=== PATIENT | female | born 1960 | race Caucasian/White ===

== ENCOUNTER 2017-06-01 06:14 | Day surgery (SDC) | payer BC, OTHER ==
[2017-06-01] MEDS ORDERED: KETOROLAC 30 MG/ML VIAL IVP ONE (06:15)
[2017-06-01] MEDS ORDERED: PROPOFOL 10 MG/ML VIAL IV ONE (06:15)
[2017-06-01] MEDS ORDERED: SEVOFLURANE 250 ML INH ONE (06:15)
[2017-06-01] MEDS ORDERED: MECLIZINE 25 MG TABLET PO ONE (06:15)
[2017-06-01] MEDS ORDERED: ONDANSETRON HCL IV 4 MG/2 ML VIAL IVP ONE (06:15)
[2017-06-01] MEDS ORDERED: FAMOTIDINE 20MG TABLET PO ONE (06:15)
[2017-06-01] MEDS ORDERED: LIDOCAINE 2% MDV (20MG/ML) 20ML VIAL IV ONE (06:15)
[2017-06-01] MEDS ORDERED: ACETAMINOPHEN W/ CODEINE 300MG/30MG TABLET PO ONE (06:15)
[2017-06-01] MEDS ORDERED: ACETAMINOPHEN 1,000 MG/100 ML BTL IV ONE (06:15)
[2017-06-01] MEDS ORDERED: METOCLOPRAMIDE 10 MG TABLET PO ONE (06:15)
--- NOTE | 2017-06-01 12:30 | Operative Note ---
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 OPERATIVE PROCEDURE: Alvaro Quervain's fasciotomy of the left wrist. DESCRIPTION: This 57-year-old female was taken to the operating room and placed in the supine position on the operating room table. A general anesthetic was administered and the left upper extremity was elevated, prepped with Hibiclens and draped in the usual sterile fashion. It was exsanguinated and the tourniquet inflated to 250 mmHg. A transverse incision was made 1 cm proximal to the tip of the radial styloid on the radial aspect of the wrist. Dissection was carried down to the skin and subcutaneous tissue. Hemostasis obtained with the electrocautery. The superficial vessels were protected and retracted radially and ulnarly to expose the proximal edge of the first dorsal compartment, and this was incised from proximal to distal with the tendons under direct vision. An extensive amount of rust-colored fluid emanated from the tendon sheath, and this was suctioned. The patient's tendons, however, appeared to be normal. The extensor brevis was seen to be septated in a separate compartment, and this was divided to free up all tendons. The abductor longus then was easily identified and the tendons themselves appeared to be otherwise normal. The wound was irrigated and we checked the path of all tendons and found them to be unobstructed, and the wound was then closed. The subcutaneous tissue closed with 4-0 Vicryl. The skin was closed with a subcuticular 4-0 nylon suture. Sterile dressings were applied, and the patient taken to the recovery room in satisfactory condition. GROSS PATHOLOGY: This patient demonstrated extensive amount of synovial fluid in the tendon sheath of the first dorsal compartment. The extensor brevis was seen to be septated in a separate compartment within the first dorsal compartment, and this was divided so that all tendons were free and unobstructed. CC: Dejah Nicole DO [facility]
== END 2017-06-01 08:35 | disposition home or self-care (01) ==
LOC: SUR 06:14
PROVIDERS: ATTEND Orthopaedic Surgery
DX: M65.4 Radial styloid tenosynovitis [de Quervain] (principal); E03.9 Hypothyroidism, unspecified
CPT/HCPCS: 25000; 01810; J1885; J2405

== ENCOUNTER 2017-12-07 09:24 | Day surgery (SDC) | payer BC ==
[~2017-12-07 09:24] MED LIST: ACETAMINOPHEN 1,000 MG/100 ML BTL IV ONE; SCOPOLAMINE 1 PATCH TDSY TD ONE
[2017-12-07] MEDS ORDERED: EPHEDRINE SULFATE 50 MG/ML ML IV ONE (09:25)
[2017-12-07] MEDS ORDERED: PROPOFOL 10 MG/ML VIAL IV ONE (09:25)
[2017-12-07] MEDS ORDERED: SEVOFLURANE 250 ML INH ONE (09:25)
[2017-12-07] MEDS ORDERED: BUPIVACAINE 0.25% W/EPI MPF 30ML VIAL IVP ONE (09:25)
[2017-12-07] MEDS ORDERED: LIDOCAINE 1% MDV (10MG/ML) 20ML VIAL SQ ONE (09:25)
[2017-12-07] MEDS ORDERED: ONDANSETRON HCL IV 4 MG/2 ML VIAL IVP ONE (09:25)
[2017-12-07] MEDS ORDERED: DEXAMETHASONE 4 MG/ML 1ML VIAL IVP ONE (09:25)
[2017-12-07] MEDS ORDERED: KETOROLAC 30 MG/ML VIAL IVP ONE (09:25)
[2017-12-07] MEDS ORDERED: *PACU ONLY* KETAMINE HCL 10 MG/ML (20ML) VIAL IV ONE (09:25)
--- NOTE | 2017-12-08 10:30 | Operative Note ---
DATE OF SURGERY: 12/07/2017 Surgeon: Morteza Dempsey DO PREOPERATIVE DIAGNOSIS: Acromioclavicular arthrosis of the right shoulder. POSTOPERATIVE DIAGNOSIS: Acromioclavicular arthrosis of the right shoulder. OPERATION: Anant procedure of the right shoulder (resection right distal clavicle). DESCRIPTION OF PROCEDURE: This 57-year-old female was taken to the operating room and placed in the supine position on the operating room table. General anesthetic was administered. She was then placed in the beach chair position with all bony prominences well padded and the head well secured. The right shoulder was prepped with Hibiclens and draped in the usual sterile fashion. An incision was made in Dusty's lines from anterior to posterior overlying the acromioclavicular joint. Dissection was carried down through the skin and subcutaneous tissue. Hemostasis obtained with the electrocautery. The joint capsule was identified and an incision was made on the superior surface of the capsule and then it was extended on the superior surface in the midline to form flaps over the distal clavicle. Subperiosteal elevation was carried out using periosteal elevator to expose the distal clavicle. Approximately 0.75 cm of the distal clavicle was resected utilizing an oscillating saw. A power rasp was then used to smooth and contour the cut end of bone. The joint was copiously irrigated and dried. I placed my finger in the joint and moved her shoulder through range of motion and no evidence of impingement was identified after the segment of distal clavicle was removed. The wound was again irrigated and hemostasis obtained with the electrocautery. The articular cartilage disc was seen to be disrupted and basically pulverized. It was excised. The capsule was then reapproximated with 0 Vicryl. The subcutaneous tissue closed with 3-0 Vicryl and the skin with a running subcuticular 4-0 nylon suture. Sterile dressings were applied with a sling. The patient taken to the recovery room in satisfactory condition. GROSS PATHOLOGY: There was disruption of the acromioclavicular disc and small osteophytes over the distal clavicle. Approximately 0.75 cm of the distal clavicle was excised. CC: DO TACHO Lucas
== END 2017-12-07 12:00 | disposition home or self-care (01) ==
LOC: SUR 09:24
PROVIDERS: ATTEND Orthopaedic Surgery
DX: M19.011 Primary osteoarthritis, right shoulder (principal); M06.9 Rheumatoid arthritis, unspecified
CPT/HCPCS: 29824; 01630; J1885; J2405